=== PATIENT | female | born 1935 | race Caucasian/White ===

== ENCOUNTER → 2020-01-11 15:03 | Outpatient (BNVA) | payer MEDICARE, SELFPAY | PROVIDERS: Visit Provider Registered Nurse | DX: R10.9 Unspecified abdominal pain (principal); R31.9 Hematuria, unspecified | CPT/HCPCS: 80053; 81000; 87077; 87186 ==

== ENCOUNTER → 2020-01-20 10:58 | Outpatient (BNVA) | payer MEDICARE, SELFPAY | PROVIDERS: Visit Provider Registered Nurse | DX: E11.9 Type 2 diabetes mellitus without complications (principal); I10 Essential (primary) hypertension | CPT/HCPCS: 80053; 80061; 83036 ==

== ENCOUNTER → 2020-06-07 10:51 | Outpatient (BNVA) | payer MEDICARE, SELFPAY | PROVIDERS: Visit Provider Registered Nurse | DX: I10 Essential (primary) hypertension (principal); E11.9 Type 2 diabetes mellitus without complications | CPT/HCPCS: 80053; 80061; 83036; 85025 ==

== ENCOUNTER 2021-07-30 11:50 | Outpatient (CLI) | payer MEDICARE, SELFPAY ==
--- NOTE | 2021-07-30 11:59 | XR_ITS ---
WS: [id number] LUMBAR SPINE: 3 VIEWS TECHNIQUE: AP, lateral and L5-S1 spot. HISTORY: Back pain. COMPARISON: None available. Mild LEFT curvature lumbar spine. Asymmetric disc space narrowing at L1-2 and L4-5. 3 mm anterolisthe sis of L3. Marked endplate sclerosis with large RIGHT marginal osteophytes at the L1-2 level. Disc spaces are all moderately narrowed. Most significant narrowing is at L5-S1. Diffuse facet joint arthritis, most significant at L4-5 and L5-S1. SI joints are symmetric bilaterally. No soft tissue abnormalities. Round calcific densities in the RIGHT abdomen are probably within the gallbladder. LEFT upper abdomen calcifications. Surgical sutures in the pelvis. XR/XR lumbar spine 2-3V* [id number] IMPRESSION: 1. Degenerative levoscoliosis lumbar spine. 2. Advanced degenerative changes at L5-S1 and L1-2. 3. No fracture.
== END 2021-07-30 11:51 | disposition home or self-care (01) ==
PROVIDERS: PCP Registered Nurse; Visit Provider Registered Nurse
DX: R29.898 Other symptoms and signs involving the musculoskeletal system (principal); M54.50 Low back pain, unspecified; M41.86 Other forms of scoliosis, lumbar region
CPT/HCPCS: 72100

== ENCOUNTER → 2021-10-02 14:40 | Outpatient (BNVA) | payer MEDICARE, SELFPAY | PROVIDERS: PCP Registered Nurse; Visit Provider Registered Nurse | DX: Z00.00 Encounter for general adult medical examination without abnormal findings (principal); E11.9 Type 2 diabetes mellitus without complications; E78.2 Mixed hyperlipidemia; I10 Essential (primary) hypertension | CPT/HCPCS: 80053; 81000; 83036 ==

== ENCOUNTER → 2021-11-26 11:28 | Outpatient (BNVA) | payer MEDICARE, SELFPAY | PROVIDERS: PCP Registered Nurse; Visit Provider Registered Nurse | DX: E11.9 Type 2 diabetes mellitus without complications (principal) | CPT/HCPCS: 80053 ==

== ENCOUNTER → 2022-03-08 09:24 | Outpatient (BNVA) | payer MEDICARE, SELFPAY | PROVIDERS: PCP Registered Nurse; Visit Provider Registered Nurse | DX: E11.9 Type 2 diabetes mellitus without complications (principal); I10 Essential (primary) hypertension | CPT/HCPCS: 80053; 83036 ==

== ENCOUNTER → 2022-09-03 09:24 | Outpatient (BNVA) | payer MEDICARE, SELFPAY | PROVIDERS: PCP Registered Nurse; Visit Provider Registered Nurse | DX: E11.9 Type 2 diabetes mellitus without complications (principal); I10 Essential (primary) hypertension; E78.2 Mixed hyperlipidemia; B37.31 Acute candidiasis of vulva and vagina | CPT/HCPCS: 80053; 80061; 82043; 83036; 85025 ==

== ENCOUNTER → 2022-10-11 10:15 | Outpatient (BNVA) | payer MEDICARE, SELFPAY | PROVIDERS: PCP Registered Nurse; Visit Provider Registered Nurse | DX: E11.9 Type 2 diabetes mellitus without complications (principal) | CPT/HCPCS: 83036; 85025 ==

== ENCOUNTER → 2022-11-14 10:55 | Outpatient (BNVA) | payer MEDICARE, SELFPAY | PROVIDERS: PCP Registered Nurse; Referring Provider Internal Medicine; Visit Provider Internal Medicine | DX: E11.9 Type 2 diabetes mellitus without complications (principal); R19.7 Diarrhea, unspecified; Z98.890 Other specified postprocedural states | CPT/HCPCS: 99203; 99204 ==

== ENCOUNTER → 2023-02-14 10:42 | Outpatient (BNVA) | payer MEDICARE, SELFPAY | PROVIDERS: PCP Registered Nurse; Visit Provider Internal Medicine | DX: E11.9 Type 2 diabetes mellitus without complications (principal) | CPT/HCPCS: 83036 ==

== ENCOUNTER → 2023-02-17 09:56 | Outpatient (BNVA) | payer MEDICARE, SELFPAY | PROVIDERS: PCP Registered Nurse; Visit Provider Internal Medicine | DX: E11.9 Type 2 diabetes mellitus without complications (principal); R19.7 Diarrhea, unspecified; Z98.890 Other specified postprocedural states | CPT/HCPCS: 99213; 99214 ==

== ENCOUNTER → 2023-04-09 11:42 | Outpatient (BNVA) | payer MEDICARE, SELFPAY | PROVIDERS: PCP Registered Nurse; Visit Provider Registered Nurse | DX: I10 Essential (primary) hypertension (principal); E78.5 Hyperlipidemia, unspecified; E11.9 Type 2 diabetes mellitus without complications; E78.2 Mixed hyperlipidemia | CPT/HCPCS: 80053; 80061; 85025 ==

== ENCOUNTER → 2023-09-01 15:06 | Outpatient (BNVA) | payer MEDICARE, SELFPAY | PROVIDERS: PCP Registered Nurse; Visit Provider Internal Medicine | DX: E11.9 Type 2 diabetes mellitus without complications (principal); R19.7 Diarrhea, unspecified; Z98.890 Other specified postprocedural states | CPT/HCPCS: 80053; 80061; 83036 ==

== ENCOUNTER → 2023-09-02 10:26 | Outpatient (BNVA) | payer MEDICARE, SELFPAY | PROVIDERS: PCP Registered Nurse; Visit Provider Internal Medicine | DX: E11.9 Type 2 diabetes mellitus without complications (principal); R19.7 Diarrhea, unspecified; Z98.890 Other specified postprocedural states | CPT/HCPCS: 82043 ==

== ENCOUNTER → 2023-09-08 10:59 | Outpatient (BNVA) | payer MEDICARE, SELFPAY | PROVIDERS: PCP Registered Nurse; Visit Provider Internal Medicine | DX: E11.9 Type 2 diabetes mellitus without complications (principal); R19.7 Diarrhea, unspecified; Z98.890 Other specified postprocedural states; E78.2 Mixed hyperlipidemia | CPT/HCPCS: 99214 ==

== ENCOUNTER 2023-09-18 10:58 | Outpatient (CLI) | payer MEDICARE, SELFPAY ==
--- NOTE | 2023-09-18 14:33 | OP.DCCON ---
Reason for Visit: 83852 E11.9 Person Interviewed: Patient Medical History, Labs and Background: Mary mentioned her HbA1c was 8.2 and that scared her. She also mentioned she was gluten free and had a colon resection 10 or so years ago. Height: 5 ft 4 in Weight: 159 lb BMI: 27.3 kg/m2 UBW: Mary's wt range is 155-165lbs. Weight History: No reported issues with weight. Concerns and Goals: Mary wanted more information about counting carbohydrates. Sleep Hygiene: Typically, Mary has no issues with sleep - if she wakes up to go to the bathroom she can fall back asleep quickly. Physical Activity: With her 5 horses, 1 cow, 1 dog and 20 acres Mary keeps busy. Other Feeding Issues: Diarrhea has plagued her, but changing meds and to a gluten free diet has minimized the diarrhea. 24 Hour Recall: Breakfast Time: 7:30-8 protein bar, coffee+creamer Snack Time: Lunch Time: noon sandwich w/tuna fish Snack Time: 15 potato chips + half a bottle of soda Dinner Time: 6ish chicken + veggies + salad Snack Time: Soda vs Milk vs Water: Coffee+ creamer in the morning, then approximately 32 ounces water/day, and 1/2 half of a bottle of soda every afternoon Additional Comments: Mary looks remarkably well and was very pleasant. Every day she keeps track of her carbs and quits when she gets to 150. Because she loves chips and soda, she parcels them out for her afternoon snack, and when she has ice cream she works it into a meal's ration of carbs. Recommendations: Assessment: Mary wanted a detailed list of carbs in common foods and she also had some specific questions about particular foods. Already she had a good grasp of eating a balance of carbs, protein and fat, but wanted a more comprehensive list of the grams of carbohydrate in foods. Nutrition dx: Altered labs r/t DM2 aeb HbA1c of 8.2. Intervention: Initially I discussed carbs in terms of servings - 1 serving equals 15 grams - but that really confused Mary, so we went back to 150 grams of Carbs/day. She prefers to look up what she is eating and keep track of the grams of carbs, and then keep it under 150 grams total, so we worked with that. She has a good understanding of balancing carbs with protein and fat. When I mentioned that her snack could cause trouble as it was mostly carbs, she was reluctant to let go of it. In the end she agreed to eat a tablespoon of peanut butter to offer more protein/fat. Monitoring and Evaluation: On the goals sheet for Mary is my office phone and email for f/u questions. I was able to print out a list from the Nutrition Care Manual of the grams of carbohydrate in commonly eaten foods - which she really liked. Coding Level of Care Code Nutrition/Individ/Init 45min Time Spent (min) 45
== END 2023-09-18 10:59 | disposition home or self-care (01) ==
LOC: DIET 10:58
PROVIDERS: PCP Registered Nurse; Visit Provider Internal Medicine
DX: Z71.3 Dietary counseling and surveillance (principal); E11.9 Type 2 diabetes mellitus without complications; Z68.27 Body mass index [BMI] 27.0-27.9, adult
CPT/HCPCS: 97802

== ENCOUNTER → 2024-02-10 09:33 | Outpatient (BNVA) | payer MEDICARE, SELFPAY | PROVIDERS: PCP Registered Nurse; Visit Provider Internal Medicine | DX: I10 Essential (primary) hypertension (principal); E11.9 Type 2 diabetes mellitus without complications; E78.2 Mixed hyperlipidemia | CPT/HCPCS: 80053; 80061; 82043; 83036 ==

== ENCOUNTER → 2024-02-19 08:26 | Outpatient (BNVA) | payer MEDICARE, SELFPAY | PROVIDERS: PCP Registered Nurse; Visit Provider Internal Medicine | DX: E11.9 Type 2 diabetes mellitus without complications (principal); I10 Essential (primary) hypertension; S90.519A Abrasion, unspecified ankle, initial encounter; X58.XXXA Exposure to other specified factors, initial encounter | CPT/HCPCS: 99214 ==

== ENCOUNTER → 2024-03-09 14:20 | Outpatient (BNVA) | payer MEDICARE, SELFPAY | PROVIDERS: PCP Registered Nurse; Visit Provider Podiatrist Foot & Ankle Surgery | DX: L30.9 Dermatitis, unspecified (principal) | CPT/HCPCS: 99203 ==

== ENCOUNTER → 2024-04-15 13:43 | Outpatient (BNVA) | payer MEDICARE, SELFPAY | PROVIDERS: PCP Registered Nurse; Visit Provider Podiatrist Foot & Ankle Surgery | DX: L30.9 Dermatitis, unspecified (principal) | CPT/HCPCS: 99213 ==

== ENCOUNTER → 2024-08-17 11:10 | Outpatient (BNVA) | payer MEDICARE, SELFPAY | PROVIDERS: PCP Registered Nurse; Visit Provider Internal Medicine | DX: E11.9 Type 2 diabetes mellitus without complications (principal); I10 Essential (primary) hypertension | CPT/HCPCS: 80053; 80061; 83036 ==

== ENCOUNTER → 2024-08-18 11:15 | Outpatient (BNVA) | payer MEDICARE, SELFPAY | PROVIDERS: PCP Registered Nurse; Visit Provider Internal Medicine | DX: E11.9 Type 2 diabetes mellitus without complications (principal); I10 Essential (primary) hypertension | CPT/HCPCS: 82043 ==

== ENCOUNTER → 2024-10-06 10:05 | Outpatient (BNVA) | payer MEDICARE, SELFPAY | PROVIDERS: PCP Registered Nurse; Visit Provider Internal Medicine | DX: E11.9 Type 2 diabetes mellitus without complications (principal); R19.7 Diarrhea, unspecified; Z98.890 Other specified postprocedural states | CPT/HCPCS: 99214 ==

== ENCOUNTER → 2024-11-02 10:19 | Outpatient (BNVA) | payer MEDICARE, SELFPAY | PROVIDERS: PCP Registered Nurse; Referring Provider Internal Medicine; Visit Provider Surgery | DX: Z98.890 Other specified postprocedural states (principal); R19.7 Diarrhea, unspecified | CPT/HCPCS: 99204 ==

== ENCOUNTER → 2025-05-18 09:42 | Outpatient (BNVA) | payer MEDICARE, SELFPAY | PROVIDERS: PCP Registered Nurse; Visit Provider Internal Medicine | DX: E11.9 Type 2 diabetes mellitus without complications (principal); R19.7 Diarrhea, unspecified; Z98.890 Other specified postprocedural states; S90.519A Abrasion, unspecified ankle, initial encounter; X58.XXXA Exposure to other specified factors, initial encounter | CPT/HCPCS: 80053; 80061; 82043; 83036 ==